=== PATIENT | male | born 1935 | race American Indian/Alaskan Native ===

== ENCOUNTER 2017-01-25 04:01 | Emergency (ER) | payer MEDICARE, OTHER ==
[2017-01-25 06:27] VITALS: BP 157/87
== END 2017-01-25 08:05 | disposition left against medical advice (07) ==
LOC: EDBD → ED 04:01
DX: R10.9 Unspecified abdominal pain (principal); R19.7 Diarrhea, unspecified; Z53.21 Procedure and treatment not carried out due to patient leaving prior to being seen by health care provider